=== PATIENT | female | born 2000 | race Hispanic/Latino ===

== ENCOUNTER 2025-10-06 03:58 | Observation (INO) | payer OTHER, SELFPAY ==
[2025-10-06 04:33] VITALS: BP 115/57; BMI 23.5
[2025-10-06 04:34] LABS: Hematocrit 28.5 % (37.0-47.0); Hemoglobin 9.8 g/dL (12.0-16.0); Mean Corp Hgb Conc. 34.4 g/dL (33.0-37.0); Mean Corpuscular Volume 92.2 fL (81.0-99.0); Nucleated Red Blood Cells % 0 %; Platelet Count 246 10^3/uL (130-400); Red Cell Dist. Width 12.4 % (11.5-14.5)
[2025-10-06 04:58] LABS: ALT (SGPT) 16 U/L (0-35); AST (SGOT) 17 U/L (14-36); Albumin 3.8 g/dl (3.5-5.0); Alkaline Phosphatase 81 U/L (38-126); Blood Urea Nitrogen 10 mg/dl (7-17); Calcium 8.9 mg/dl (8.4-10.2); Carbon Dioxide 17 mmol/L (22-30); Chloride 107 mmol/L (98-107); Estimated Creatinine Clearance > 125 ml/min; Glucose 85 mg/dl (70-99); Potassium 3.8 mmol/L (3.5-5.1); Sodium 133 mmol/L (135-145); Total Protein 6.8 g/dl (6.3-8.2); eGFR > 60.00
[2025-10-06] MEDS: LR 1000 IV (04:59)
[2025-10-06 05:13] LABS: Urine Character Cloudy (Clear)
[2025-10-06 05:56] LABS: Urine Squamous Cell SEEN /LPF (Few); Urine White Cell >100 /HPF (0-5)
[2025-10-06] MEDS: ANCEF 5 IV (06:05)
== END 2025-10-06 08:06 | disposition home or self-care (01) ==
LOC: LDRP 03:58
PROVIDERS: ADMITTING PHYSICIAN Obstetrics & Gynecology
DX: O23.42 Unspecified infection of urinary tract in pregnancy, second trimester (principal); N39.0 Urinary tract infection, site not specified; O99.012 Anemia complicating pregnancy, second trimester; D64.9 Anemia, unspecified; Z3A.24 24 weeks gestation of pregnancy
CPT/HCPCS: 80053; 81003; 81015; 85025; 86850; 86900; 86901; 87077; 87086; 87186; G0378